=== PATIENT | male | born 1985 | race Two or more races ===

== ENCOUNTER 2018-09-27 11:03 | Outpatient (CLI) | payer OTHER | END 2018-09-27 11:17 | disposition home or self-care (01) | LOC: LAB 11:03 | DX: J11.89 Influenza due to unidentified influenza virus with other manifestations (principal); J06.9 Acute upper respiratory infection, unspecified; R00.2 Palpitations; R05 Cough ==

== ENCOUNTER → 2018-10-17 | Emergency (ER) | payer OTHER ==
[~2018-10-17] VITALS: Ht 180.3 cm; Wt 104.3 kg
== END | disposition left against medical advice (07) ==
LOC: ER 11:04
DX: Z53.20 Procedure and treatment not carried out because of patient's decision for unspecified reasons (principal)